=== PATIENT | female | born 1995 | race Caucasian/White ===

== ENCOUNTER → 2016-11-28 | Outpatient (REF) | LOC: ZLAB.WCH 11:06 | DX: Z01.89 Encounter for other specified special examinations (principal) ==

== ENCOUNTER 2021-11-05 08:47 | Emergency (ER) | payer SELFPAY ==
[~2021-11-05] VITALS: Ht 162.6 cm; Wt 81.8 kg
[2021-11-05 09:39] VITALS: BP 108/69; PULSE 73; TEMP 97.8
[2021-11-05] MEDS ORDERED: NORCO 325 MG-51 TAB PO (10:23)
[2021-11-05] MEDS ORDERED: MOTRIN 600600 MG/TAB PO (10:23)
== END 2021-11-05 10:44 | disposition left against medical advice (07) ==
LOC: COL.ER 08:47
DX: U07.1 COVID-19 (principal); O90.89 Other complications of the puerperium, not elsewhere classified